=== PATIENT | female | born 1945 | race Caucasian/White ===

== ENCOUNTER 2017-05-06 13:55 | Observation (INO) | payer MEDICARE ==
[~2017-05-06] VITALS: Ht 170.2 cm; Wt 77.0 kg
[~2017-05-06 13:55] MED LIST: AMLO5TAB22 PO; ASPI325T PO; BIOT10004 PO; CYCL-36 PO; DEXI30CA2 PO; ESTR0.059; NORV5TAB PO; RANI150 PO; TRAM50TA PO
[2017-05-06 13:57] VITALS: BP 142/84; PULSE 107; RESP 18; TEMP 97.9; O2SAT 98
[2017-05-06 14:41] VITALS: BP 146/75; PULSE 89; RESP 19; TEMP 97.7; O2SAT 100
[2017-05-06] MEDS ORDERED: SODIUM CHLORIDE 0.9% FLUSH 10 ML FLUSH IVF PRN (14:45)
[2017-05-06] MEDS ORDERED: ASPIRIN 325 MG TAB PO ONE (14:45)
[2017-05-06] MEDS ORDERED: NITROGLYCERIN 0.4 MG SL 25 TABS/BTL SL ONE (14:45)
[2017-05-06 14:46] VITALS: BP_SYST 142; BP_SYST 146; BP_DIAS 72; BP_DIAS 75
[2017-05-06] MEDS ORDERED: ASPI81CH CHEW (14:49)
[2017-05-06] MEDS ORDERED: AMLO5TAB2 PO (14:49)
[2017-05-06] MEDS ORDERED: OMEP20TA PO (14:49)
[2017-05-06] MEDS ORDERED: CARV6.252 PO (14:49)
--- NOTE | 2017-05-06 14:54 | PD ---
HPI Chief Complaint: Chest Pain Time Seen by Provider: 14:49 Travel History International Travel<30 days: No Contact w/Intl Traveler<30days: No Traveled to known affect area: No History of Present Illness HPI 71-year-old female that presents to the ED for evaluation of chest pain. Per patient she's had this past couple days but became more severe today. Per patient he feels like a pressure. Radiates to the back. Per patient she had similar episode on 2014 which she had a stent on her heart. Per patient feels very similar. Per patient she took 2 aspirins today. Per patient she's not been feeling well for a couple of weeks. Per patient she was seen [address] Holden and had a stress test that was negative. Per patient she actually has an appointment with Dr. Orlando as she will like a second opinion on Friday but she states that because the pain and the symptoms came the past couple days she cannot wait so she came here to get it checked. She has not taken any nitroglycerin. Per patient her pain is pressure-like and is 8 out of 10. Per patient now is somewhat improve her per patient he comes and goes and is not usually constant. Per patient he started yesterday with back pain. She has had her gallbladder removed. She states that she felt nauseous yesterday and today. No vomiting. Loose stool today. No history of aneurysms. PFSH Past Medical History Cardiac Catheterization: Yes (not sure where done about 6-8 yrs ago no stents) Cardiovascular Problems: Yes (CAD, HTN ) High Cholesterol: Yes Coronary Artery Disease: Yes Diabetes: No GERD: Yes Hypertension: Yes Tetanus Vaccination: Unknown ?: Not Past Surgical History Appendectomy: Yes Hysterectomy: Yes Social History Alcohol Use: Yes (OCC WINE) Tobacco Use: No Substance Use: No Allergies-Medications (Allergen,Severity, Reaction): Coded Allergies: No Known Allergies (Verified , 05/06/17) Reported Meds & Prescriptions Reported Meds & Active Scripts Active Reported Omeprazole 20 Mg Tab 20 Mg PO DAILY Aspirin 81 Mg Chew 81 Mg CHEW ONCE Carvedilol 6.25 Mg Tab 6.25 Mg PO BID Amlodipine (Amlodipine Besylate) 5 Mg Tab 5 Mg PO DAILY Review of Systems Except as stated in HPI: all other systems reviewed are Neg Physical Exam Narrative GENERAL: SKIN: Warm and dry. HEAD: Atraumatic. Normocephalic. EYES: Pupils equal and round. No scleral icterus. No injection or drainage. ENT: No nasal bleeding or discharge. Mucous membranes pink and moist. Tongue is midline. No uvula deviation. NECK: Trachea midline. No JVD. CARDIOVASCULAR: Regular rate and rhythm. No murmurs, S3, S4. Chest pain is not reproducible with touch. RESPIRATORY: No accessory muscle use. Clear to auscultation. Breath sounds equal bilaterally. GASTROINTESTINAL: Abdomen soft, non-tender, nondistended. Hepatic and splenic margins not palpable. MUSCULOSKELETAL: Extremities without clubbing, cyanosis, or edema. No obvious deformities. Full range of motion of the upper and lower extremities bilaterally. 2+ pulses bilaterally. NEUROLOGICAL: Awake and alert. No obvious cranial nerve deficits. Motor grossly within normal limits. Five out of 5 muscle strength in the arms and legs. Normal speech. PSYCHIATRIC: Appropriate mood and affect; insight and judgment normal. Data Data Last Documented VS Vital Signs Date Time Temp Pulse Resp B/P Pulse Ox O2 Delivery O2 Flow Rate FiO2 05/06/17 14:46 146/75 142/72 05/06/17 14:41 100 Room Air 05/06/17 14:41 97.7 89 19 Orders Electrocardiogram (05/06/17 ) Ckmb (Isoenzyme) Profile (05/06/17 14:37) Complete Blood Count With Diff (05/06/17 14:37) Comprehensive Metabolic Panel (05/06/17 14:37) Magnesium (Mg) (05/06/17 14:37) Prothrombin Time / Inr (Pt) (05/06/17 14:37) Act Partial Throm Time (Ptt) (05/06/17 14:37) Troponin I (05/06/17 14:37) Lipase (05/06/17 14:37) Chest, Single Ap (05/06/17 14:37) Ecg Monitoring (05/06/17 14:37) Bilateral Bp Monitoring (05/06/17 14:37) Iv Access Insert/Monitor (05/06/17 14:37) Oximetry (05/06/17 14:37) Oxygen Administration (05/06/17 14:37) Aspirin (Aspirin) (05/06/17 14:45) Sodium Chloride 0.9% Flush (Ns Flush) (05/06/17 14:45) Nitroglycerin Sl (Nitrostat Sl) (05/06/17 14:45) Activity Bed Rest With Brp (05/06/17 16:55) Vital Signs (Adult) Q4H (05/06/17 16:55) Cardiac Rhythm .As Directed (05/06/17 16:55) Notify Dr: Other .PRN (05/06/17 16:55) Notify Dr. Parameters (05/06/17 16:55) Resp Oxygen Nasal Cannula (05/06/17 ) Ckmb (Isoenzyme) Profile (05/06/17 17:45) Ckmb (Isoenzyme) Profile (05/06/17 20:45) Troponin I (05/06/17 17:45) Troponin I (05/06/17 20:45) Electrocardiogram (05/06/17 17:45) Electrocardiogram (05/06/17 20:45) ^ Obtain (05/06/17 16:55) Sodium Chloride 0.9% Flush (Ns Flush) (05/06/17 17:00) Sodium Chloride 0.9% Flush (Ns Flush) (05/06/17 21:00) Acetaminophen (Tylenol) (05/06/17 17:00) Acetamin-Hydrocod 325-7.5 Mg ([place] 7.5 (05/06/17 17:00) Ondansetron Inj (Zofran Inj) (05/06/17 17:00) Project Eng / Telemetry JESSENIA.Q8H (05/06/17 16:55) Admit Order (Ed Use Only) (05/06/17 16:55) Labs Laboratory Tests Test 05/06/17 14:45 White Blood Count 8.3 TH/MM3 Red Blood Count 5.29 MIL/MM3 Hemoglobin 15.3 GM/DL Hematocrit 44.9 % Mean Corpuscular Volume 85.0 FL Mean Corpuscular Hemoglobin 29.0 PG Mean Corpuscular Hemoglobin 34.1 % Concent Red Cell Distribution Width 15.2 % Platelet Count 301 TH/MM3 Mean Platelet Volume 7.2 FL Neutrophils (%) (Auto) 64.7 % Lymphocytes (%) (Auto) 25.0 % Monocytes (%) (Auto) 7.8 % Eosinophils (%) (Auto) 1.8 % Basophils (%) (Auto) 0.7 % Neutrophils # (Auto) 5.4 TH/MM3 Lymphocytes # (Auto) 2.1 TH/MM3 Monocytes # (Auto) 0.6 TH/MM3 Eosinophils # (Auto) 0.1 TH/MM3 Basophils # (Auto) 0.1 TH/MM3 CBC Comment DIFF FINAL Differential Comment Prothrombin Time 10.3 SEC Prothromb Time International 0.9 RATIO Ratio Activated Partial 29.1 SEC Thromboplast Time Sodium Level 141 MEQ/L Potassium Level 4.0 MEQ/L Chloride Level 106 MEQ/L Carbon Dioxide Level 26.4 MEQ/L Anion Gap 9 MEQ/L Blood Urea Nitrogen 17 MG/DL Creatinine 0.72 MG/DL Estimat Glomerular Filtration 80 ML/MIN Rate Random Glucose 101 MG/DL Calcium Level 9.6 MG/DL Magnesium Level 2.2 MG/DL Total Bilirubin 0.7 MG/DL Aspartate Amino Transf 21 U/L (AST/SGOT) Alanine Aminotransferase 23 U/L (ALT/SGPT) Alkaline Phosphatase 119 U/L Total Creatine Kinase 88 U/L Troponin I LESS THAN 0.02 NG/ML Total Protein 7.8 GM/DL Albumin 4.0 GM/DL Lipase 167 U/L [facility] Medical Decision Making Medical Screen Exam Complete: Yes Emergency Medical Condition: Yes Medical Record Reviewed: Yes Interpretation(s) CBC & BMP Diagram 05/06/17 14:45 LFTS and lipase WNL troponin and CKMB negative EKG shows sinus rhythm with no sign of acute ischemia or arrhythmia read by me and attending. Last Impressions Chest X-Ray 05/06/17 1437 Signed Impressions: Service Date/Time: Saturday, May 06, 2017 15:28 - CONCLUSION: 1. No acute cardiopulmonary disease radiographically. Allan Medeiros MD Differential Diagnosis Chest pain versus ACS versus GERD versus a typical chest pain versus NSTEMI Narrative Course 71-year-old female that presents to the ED for evaluation of chest pain. Patient was properly examined and was found to have signs and symptoms of unclear etiology. Definite concern for ACS. Labs and imaging ordered. Patient was given nitroglycerin and aspirin. Labs and imaging showed no sign of acute disease. My attending Dr. Taylor evaluated the patient with me. He recommends admission to the chest pain center. Patient agrees with this plan. Patient was admitted to the chest pain center. Procedures EKG Prior to Arrival: No Diagnosis Primary Impression: Chest pain Qualified Code: R07.9 - Chest pain, unspecified type Admitting Information Admitting Physician Requests: Observation Alex Riley May 06, 2017 14:54
[2017-05-06 15:13] LABS: APTT (PATIENT) 29.1 SEC (24.3-30.1); INTERNATIONAL NORMALIZED RATIO 0.9 RATIO; PROTHROMBIN TIME - PATIENT 10.3 SEC (9.8-11.6)
[2017-05-06 15:17] LABS: AUTOMATED NEUTROPHIL # 5.4 TH/MM3 (1.8-7.7); BASOPHIL # 0.1 TH/MM3 (0-0.2); BASOPHIL % 0.7 % (0.0-2.0); EOSINOPHIL # 0.1 TH/MM3 (0-0.4); EOSINOPHIL % 1.8 % (0.0-4.0); HEMATOCRIT 44.9 % (35.0-46.0); HEMO FLAGS DIFF FINAL; LYMPHOCYTE # 2.1 TH/MM3 (1.0-4.8); MEAN CORPUSCULAR HGB CONC 34.1 % (32.0-36.0); MONO % 7.8 % (0.0-8.0); NEUT % 64.7 % (16.0-70.0); PLATELET COUNT 301 TH/MM3 (150-450); RED BLOOD COUNT 5.29 MIL/MM3 (4.00-5.30); RED CELL DISTRIBUTION WIDTH 15.2 % (11.6-17.2); WHITE BLOOD COUNT 8.3 TH/MM3 (4.0-11.0)
[2017-05-06 15:34] LABS: ALT (GPT) 23 U/L (10-53); ANION GAP 9 MEQ/L (5-15); AST (GOT) 21 U/L (15-37); BICARBONATE 26.4 MEQ/L (21.0-32.0); BLOOD UREA NITROGEN 17 MG/DL (7-18); CHLORIDE 106 MEQ/L (98-107); GLOMERULAR FILTRATION RATE 80 ML/MIN (>89); MAGNESIUM 2.2 MG/DL (1.5-2.5); SODIUM (NA) 141 MEQ/L (136-145)
[2017-05-06 15:38] LABS: ALKALINE PHOSPHATASE 119 U/L (45-117); TOTAL BILIRUBIN ADULT 0.7 MG/DL (0.2-1.0)
[2017-05-06 15:39] LABS: CREATINE KINASE 88 U/L (26-192)
--- NOTE | 2017-05-06 15:56 | RADRPT ---
EXAM DATE/TIME: 05/06/2017 15:28 [facility] COMPARISON: CHEST SINGLE AP, April 11, 2015, 20:43. INDICATIONS : Chest pain. MEDICAL HISTORY : None. SURGICAL HISTORY : None. ENCOUNTER: Initial ACUITY: 1 day PAIN SCORE: 0/10 LOCATION: Bilateral chest FINDINGS: A single view of the chest demonstrates the lungs to be symmetrically aerated without evidence of mas s, infiltrate or effusion. The cardiomediastinal contours are unremarkable. Plate and screw fixatio n in the lower cervical spine. Osseous structures are intact. CONCLUSION: 1. No acute cardiopulmonary disease radiographically. Allan Medeiros MD on May 06, 2017 at 15:53 Board Certified Radiologist. This report was verified electronically.
--- NOTE | 2017-05-06 16:46 | EKG ---
Date Performed: 05/06/2017 Time Performed: 14:28:00 PTAGE: 71 years EKG: Sinus rhythm NORMAL ECG PREVIOUS TRACING : 04/12/2015 03.31 No significant change from previous tracing noted. DOCTOR: Rachid Ronquillo Interpretating Date/Time 05/06/2017 16:44:10
[2017-05-06 17:00] VITALS: O2SAT 99
[2017-05-06] MEDS ORDERED: ONDANSETRON HCL 4 MG/2 ML VIAL IV PRN (17:00)
[2017-05-06] MEDS ORDERED: ACETAMINOPHEN 500 MG CPLT PO PRN (17:00)
[2017-05-06] MEDS ORDERED: ACETAMINOPHEN/HYDROcodone 325 MG/7.5 MG TAB PO PRN (17:00)
[2017-05-06] MEDS ORDERED: SODIUM CHLORIDE 0.9% FLUSH 10 ML FLUSH IV FLUSH PRN (17:00)
[2017-05-06 17:16] VITALS: BP 159/76; PULSE 84; RESP 18; O2SAT 99
--- NOTE | 2017-05-06 17:28 | PD ---
Data Data Last Documented VS Vital Signs Date Time Temp Pulse Resp B/P Pulse Ox O2 Delivery O2 Flow Rate FiO2 05/06/17 14:46 146/75 142/72 05/06/17 14:41 100 Room Air 05/06/17 14:41 97.7 89 19 Orders Electrocardiogram (05/06/17 ) Ckmb (Isoenzyme) Profile (05/06/17 14:37) Complete Blood Count With Diff (05/06/17 14:37) Comprehensive Metabolic Panel (05/06/17 14:37) Magnesium (Mg) (05/06/17 14:37) Prothrombin Time / Inr (Pt) (05/06/17 14:37) Act Partial Throm Time (Ptt) (05/06/17 14:37) Troponin I (05/06/17 14:37) Lipase (05/06/17 14:37) Chest, Single Ap (05/06/17 14:37) Ecg Monitoring (05/06/17 14:37) Bilateral Bp Monitoring (05/06/17 14:37) Iv Access Insert/Monitor (05/06/17 14:37) Oximetry (05/06/17 14:37) Oxygen Administration (05/06/17 14:37) Aspirin (Aspirin) (05/06/17 14:45) Sodium Chloride 0.9% Flush (Ns Flush) (05/06/17 14:45) Nitroglycerin Sl (Nitrostat Sl) (05/06/17 14:45) Activity Bed Rest With Brp (05/06/17 16:55) Vital Signs (Adult) Q4H (05/06/17 16:55) Cardiac Rhythm .As Directed (05/06/17 16:55) Notify Dr: Other .PRN (05/06/17 16:55) Notify Dr. Parameters (05/06/17 16:55) Resp Oxygen Nasal Cannula (05/06/17 ) Ckmb (Isoenzyme) Profile (05/06/17 17:45) Ckmb (Isoenzyme) Profile (05/06/17 20:45) Troponin I (05/06/17 17:45) Troponin I (05/06/17 20:45) Electrocardiogram (05/06/17 17:45) Electrocardiogram (05/06/17 20:45) ^ Obtain (05/06/17 16:55) Sodium Chloride 0.9% Flush (Ns Flush) (05/06/17 17:00) Sodium Chloride 0.9% Flush (Ns Flush) (05/06/17 21:00) Acetaminophen (Tylenol) (05/06/17 17:00) Acetamin-Hydrocod 325-7.5 Mg ([place] 7.5 (05/06/17 17:00) Ondansetron Inj (Zofran Inj) (05/06/17 17:00) Stone Banker / Telemetry JESSENIA.Q8H (05/06/17 16:55) Admit Order (Ed Use Only) (05/06/17 16:55) Labs Laboratory Tests Test 05/06/17 14:45 White Blood Count 8.3 TH/MM3 Red Blood Count 5.29 MIL/MM3 Hemoglobin 15.3 GM/DL Hematocrit 44.9 % Mean Corpuscular Volume 85.0 FL Mean Corpuscular Hemoglobin 29.0 PG Mean Corpuscular Hemoglobin 34.1 % Concent Red Cell Distribution Width 15.2 % Platelet Count 301 TH/MM3 Mean Platelet Volume 7.2 FL Neutrophils (%) (Auto) 64.7 % Lymphocytes (%) (Auto) 25.0 % Monocytes (%) (Auto) 7.8 % Eosinophils (%) (Auto) 1.8 % Basophils (%) (Auto) 0.7 % Neutrophils # (Auto) 5.4 TH/MM3 Lymphocytes # (Auto) 2.1 TH/MM3 Monocytes # (Auto) 0.6 TH/MM3 Eosinophils # (Auto) 0.1 TH/MM3 Basophils # (Auto) 0.1 TH/MM3 CBC Comment DIFF FINAL Differential Comment Prothrombin Time 10.3 SEC Prothromb Time International 0.9 RATIO Ratio Activated Partial 29.1 SEC Thromboplast Time Sodium Level 141 MEQ/L Potassium Level 4.0 MEQ/L Chloride Level 106 MEQ/L Carbon Dioxide Level 26.4 MEQ/L Anion Gap 9 MEQ/L Blood Urea Nitrogen 17 MG/DL Creatinine 0.72 MG/DL Estimat Glomerular Filtration 80 ML/MIN Rate Random Glucose 101 MG/DL Calcium Level 9.6 MG/DL Magnesium Level 2.2 MG/DL Total Bilirubin 0.7 MG/DL Aspartate Amino Transf 21 U/L (AST/SGOT) Alanine Aminotransferase 23 U/L (ALT/SGPT) Alkaline Phosphatase 119 U/L Total Creatine Kinase 88 U/L Troponin I LESS THAN 0.02 NG/ML Total Protein 7.8 GM/DL Albumin 4.0 GM/DL Lipase 167 U/L [facility] Supervised Visit with CYRIL: Yes Narrative Course The history, exam, and medical decision-making in the associated mid-level provider note were completed with my assistance. I reviewed and agree with the findings presented. I attest that I had a [id number] encounter with the patient on the same day, and personally performed and documented my assessment and findings in the medical record. *My assessment and Findings: 71-year-old woman presents emergent department pressure-like chest discomfort rating her back. She is a history of CAD. She was following with Dr. Holden , but is given a follow-up with but has left his practice and is intending to follow-up with Dr. Orlando. She states that she has a stent placed before , that had 90% blockage despite a normal stress previously. I think because of that she's having recurrent episodes of abdominal chest pain. He apparently did balloon her stent open a second time on this catheter done shortly after its initial placement a couple years ago, but has reportedly had cast since then to the been clean. She reports a stress test about [address] Holden's office. She states the chest pain feels like when she had her angina that led to her stent previously. It's hard to decide what to make of this patient. Her EKG is unremarkable. I think because of her complaints of chest pain that feels like her previous angina and her history of having had a negative stress with 90% blockage she is gotten multiple cast since then. Heart catheterization since then. She is now not following with any child nutrition director that she has left Dr. Holden's practice, but has not followed up with Dr. Orlando yet. We did speak with Dr. Holden. We'll plan on admitting of the chest pain Center for serial cardiac enzymes, and further testing at the discretion of cardiology. Diagnosis Primary Impression: Chest pain Qualified Code: R07.9 - Chest pain, unspecified type Anupam Taylor MD May 06, 2017 17:28
[2017-05-06] MEDS ORDERED: NITROGLYCERIN 0.4 MG SL 25 TABS/BTL SL PRN (17:30)
[2017-05-06 19:30] VITALS: O2SAT 95
[2017-05-06 19:32] LABS: CREATINE KINASE 78 U/L (26-192)
[2017-05-06] MEDS: CARVEDILOL 6.25 MG TAB PO SCH (20:42)
[2017-05-06] MEDS: SODIUM CHLORIDE 0.9% FLUSH 10 ML FLUSH IV FLUSH SCH (20:42)
[2017-05-06 22:09] LABS: CREATINE KINASE 79 U/L (26-192)
[2017-05-07 00:30] VITALS: BP 148/74; PULSE 78; RESP 18; TEMP 98.4; O2SAT 98
[2017-05-07 03:25] VITALS: PULSE 68
[2017-05-07 05:21] VITALS: BP 120/57; PULSE 77; RESP 18; TEMP 98; O2SAT 97
--- NOTE | 2017-05-07 06:49 | EKG ---
Date Performed: 05/06/2017 Time Performed: 18:25:20 PTAGE: 71 years EKG: Sinus rhythm NORMAL ECG PREVIOUS TRACING : 05/06/2017 14.28 No significant change from previous tracing noted. DOCTOR: Rachid Ronquillo Interpretating Date/Time 05/07/2017 06:46:39
[2017-05-07 08:00] VITALS: BP 129/65; PULSE 79; RESP 16; TEMP 97.7; O2SAT 93; O2SAT 96
[2017-05-07] MEDS ORDERED: PANTOPRAZOLE SOD 20 MG DELAYED RELEASE TAB PO SCH (09:00)
[2017-05-07] MEDS ORDERED: amLODIPine BESYLATE 5 MG TAB PO SCH (09:00)
[2017-05-07] MEDS ORDERED: ASPIRIN 325 MG TAB PO SCH (09:00)
[2017-05-07] MEDS ORDERED: REGADENOSON INJ 0.4 MG/5 ML SYR ONE (10:00)
--- NOTE | 2017-05-07 11:31 | RADRPT ---
EXAM DATE/TIME: 05/07/2017 09:12 [facility] COMPARISON: No previous studies available for comparison. INDICATIONS : Left sided chest pain radiating to back. Angina. Coronary artery disease. DOSE: 27.2 mCi Tc99m Myoview at stress. 8.4 mCi Tc99m Myoview at rest. 0.4 mg Lexiscan STRESS SYMPTOMS: Dyspnea and heart racing. EJECTION FRACTION: > 70% MEDICAL HISTORY : Hypertension. Gastroesophageal reflux disease. Diabetes mellitus type 2. SURGICAL HISTORY : Appendectomy. Hysterectomy. Cholecystectomy. ENCOUNTER: Initial ACUITY: 3 weeks PAIN SCALE: 8/10 LOCATION: Left chest TECHNIQUE: The patient underwent pharmacologic stress with infusion of prescribed dose. Continuous ECG tracing was monitored during stress. Gated SPECT imaging was performed after stress and conventional SPECT i maging was performed at rest. The examination was performed on a SPECT/CT scanner, both attenuation and non-corrected datasets were reviewed. FINDINGS: DISTRIBUTION: The maximum perfused segment at stress is in the inferior wall. PERFUSION STUDY: The pattern of perfusion at stress is within normal limits. GATED STUDY: There is intact wall motion and thickening without hypokinetic or dyskinetic segments. CONCLUSION: 1. No evidence for reversible ischemia. 2. Intact wall motion with EF of greater than 70%. RISK CATEGORY: Low (<1% annual mortality rate) Allan Medeiros MD on May 07, 2017 at 11:19 Board Certified Radiologist. This report was verified electronically.
[2017-05-07 12:00] VITALS: BP 133/73; PULSE 82; RESP 16; TEMP 97.3; O2SAT 93
[2017-05-07] MEDS: SODIUM CHLORIDE 0.9% FLUSH 10 ML FLUSH IV FLUSH SCH (12:14)
[2017-05-07] MEDS: CARVEDILOL 6.25 MG TAB PO SCH (12:14)
--- NOTE | 2017-05-07 12:14 | HHI.DCPOC ---
Discharge Care Plan Diagnosis: (1) Atypical chest pain (2) Hx of coronary artery disease Goals to Promote Your Health * To prevent worsening of your condition and complications * To maintain your health at the optimal level Directions to Meet Your Goals Take your medications as prescribed Follow your dietary instruction Follow activity as directed Keep your appointments as scheduled Take your immunizations and boosters as scheduled If your symptoms worsen call your PCP, if no PCP go to Urgent Care Center or Emergency Room Smoking is Dangerous to Your Health. Avoid second hand smoke Call the 24-hour hour crisis hotline for domestic abuse at [place] May 07, 2017 12:14
--- NOTE | 2017-05-07 13:54 | EKG ---
Date Performed: 05/07/2017 Time Performed: 05:00:45 PTAGE: 71 years EKG: Sinus rhythm NORMAL ECG PREVIOUS TRACING : 05/06/2017 18.25 Since previous tracing, no significant change noted DOCTOR: Hayden Vasquez Interpretating Date/Time 05/07/2017 13:53:49
--- NOTE | 2017-05-07 14:18 | TR ---
Date Performed: 05/07/2017 Time Performed: 09:52:51 DOCTOR: Hayden Vasquez DRUG LIST: CLINICAL HISTORY: CHEST PAIN REASON FOR TEST: CHEST PAIN REASON FOR ENDING: OBSERVATION: CONCLUSION: Lexiscan stress test was performed under standard four minute protocol. Radionuclid e was injected one minute prior to ending the test. No electrocardiographic abormalities were present to suggest ischemia. Nuclear imaging and interpretation are pending. COMMENTS:
--- NOTE | 2017-05-07 15:14 | HHI.HP ---
HPI Primary Care Physician Yina Hein MD Chief Complaint Chest pain History of Present Illness 71-year-old female pertinent medical history including coronary artery disease, times one cardiac stent, hypertension, hyperlipidemia presents to emergency room for further evaluation of chest pain. Onset 2 weeks ago. Location substernal pressure accompanying with bilateral shoulder burning radiates across her back. Associated symptoms including shortness of breath and nausea. Denies any diaphoresis. No known precipitating factors does does not report symptoms to be exertional. Duration varies. No known relieving factors. Endorses she has had a recent cardiac catheterization 6 months ago performed by Dr. Holden and also chemical stress test 3 months ago. Both exams reported to be unremarkable. Since first cardiac stent placed in July 2016 reports 2 catheterizations completed due to intermittent chest pain. She has an appointment Friday05/09/[address] Orlando for a second opinion. Review of Systems General: No fatigue,weakness, fever, chills, recent travel, or recent illness. Has been in her general state of health. HEENT: No ROSSI, no vision changes, no nasal congestion or drainage CV: As stated above. Denies any current chest pain or pressure. Is not currently on statin therapy stating due to muscle aches. RESP: No SOB, cough, wheeze, or recent URI. GI: No nausea, vomiting, bowel changes, diarrhea, constipation, pain, distention , melena, blood in the stool. No change in appetite, no unintentional weight gain or weight loss. : No dysuria, urgency, frequency. EXT: No lower leg edema, no paraesthesias MS: No discomfort or change in ROM, chronic neck and upper back pain. NEURO: No dizziness, difficulty with balance, LOC, motor/sensory deficits PSYCH: No anxiety, depression, suicidal ideation SKIN: No rashes, no concerning lesions Past Family Social History Allergies: Coded Allergies: No Known Allergies (Verified , 05/06/17) Past Medical History Hypertension, hyperlipidemia, CAD, times one cardiac stent LAD, chronic neck pain, GERD, DDD Past Surgical History Cholecystectomy, appendectomy, hysterectomy, cervical fusion C5-C6 Reported Medications Active Reported Omeprazole 20 Mg Tab 20 Mg PO DAILY Aspirin 81 Mg Chew 81 Mg CHEW ONCE Carvedilol 6.25 Mg Tab 6.25 Mg PO BID Amlodipine (Amlodipine Besylate) 5 Mg Tab 5 Mg PO DAILY Social History Personal CAD, known hypertension and hyperlipidemia. No known diabetes. Lifelong nonsmoker. Denies any alcohol or illegal drug use. 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 Endorses a sedentary lifestyle otherwise. Past cardiac testing Reports 2 Cardiac catheterization sent first cardiac stent placement with most recent 6 months ago. No intervention required inhaler catheterization. July 2016cardiac catheterization times one cardiac stent to LAD this is performed [facility] Yelena scan completed 3 months ago unremarkable this was completed Dr. Holden' s office. Patient's veterinary receptionist Dr. Holden although endorses she has an appointment with Dr. Orlando this Friday for a second opinion. Physical Exam Vital Signs Vital Signs Date Time Temp Pulse Resp B/P Pulse Ox O2 Delivery O2 Flow Rate FiO2 05/07/17 12:00 97.3 82 16 133/73 93 05/07/17 08:00 96 05/07/17 08:00 97.7 79 16 129/65 93 05/07/17 05:21 98.0 77 18 120/57 97 05/07/17 03:25 68 05/07/17 00:30 98.4 78 18 148/74 98 05/06/17 19:30 95 05/06/17 17:16 84 18 159/76 99 Room Air 05/06/17 17:00 99 21 Physical Exam GENERAL: Alert WN, WD, NAD, pleasant, female HEAD: NC, AT EYES: Sclera clear, conjunctiva without injection, pupils equal and round ENT: Mucous membranes pink and moist NECK: Supple, no masses, trachea midline CV: RRR, without murmur, rub, gallop, no JVD, S1-S2 no S3-S4. RESP: Clear lungs throughout bilateral, no crackles, wheeze, rhonchi, symmetrical chest rise, nonlabored, able to speak in full sentences ABD: Soft, NT, ND, no masses, positive bowel tones EXT: Pulses +24, no dependent edema MS: Normal tone 4 extremities, nontender, no obvious deformities, full range of motion NEURO: CN II through CN XII grossly intact, motor strength 5/5, gait WNL PSYCH: A+O 3, pleasant affect, appropriate speech, appropriate mood and affect , insight and judgment SKIN: Normal turgor, normal texture, no lesions, no rashes, brisk cap refill, even hair distribution Laboratory Laboratory Tests Test 05/06/17 05/06/17 18:15 20:45 Total Creatine Kinase 78 79 Troponin I LESS THAN 0.02 LESS THAN 0.02 Result Diagram: 05/06/17 1445 05/06/17 1445 Imaging Last Impressions Myocardial Perfusion Scan Nuc Med 05/07/17 0000 Signed Impressions: Service Date/Time: Sunday, May 07, 2017 09:12 - CONCLUSION: 1. No evidence for reversible ischemia. 2. Intact wall motion with EF of greater than 70%%. RISK CATEGORY: Low (<1%% annual mortality rate) Allan Medeiros MD Chest X-Ray 05/06/17 1437 Signed Impressions: Service Date/Time: Saturday, May 06, 2017 15:28 - CONCLUSION: 1. No acute cardiopulmonary disease radiographically. Allan Medeiros MD Course EKGs Normal sinus rhythm, normal axis, no ST or T-segment changes Assessment and Plan Assessment and Plan #1 Chest painadmitted to chest pain center. Ruled out with 3 sets of EKGs, cardiac, and monitored overnight. Seen and evaluated by Dr. Hayden Vasquez. Will complete a chemical stress test as patient states she is unable to walk on treadmill. After test completed will call Dr. Holden for further recommendations. Discussed in length if she would Dr. Holden to be notified and she agrees. #2 Hypertensioncontinue amlodipine #3 Coronary artery diseasecontinue carvedilol and aspirin. Discussed in length importance of statin therapy and to discuss with Dr. Orlando. #4 GERDcontinue omeprazole Yelena scan no evidence of reversible ischemia. Intact wall motion with EF greater than 70%. Dr. Holden made aware patient arrival to chest pain center , ruled out with serial EKGs and cardiac enzymes, complete an chemical stress test is unremarkable. Nelida agrees to assess patient but would first like the patient to be asked which veterinary receptionist prefers. After further discussion with patient she would like to proceed with her original plan to get a second opinion , therefore she would like to be discharged and follow-up with Dr. Orlando this Friday. Second call placed to Dr. Holden and he has been aware patient' s decision. So [place] May 07, 2017 15:14
== END 2017-05-07 12:42 | disposition home or self-care (01) ==
LOC: NEPC 13:55 → NEDA 16:59 → NEPGCP 18:33
PROVIDERS: ADMIT Internal Medicine Interventional Cardiology; ATTEND Internal Medicine Interventional Cardiology
DX: R07.89 Other chest pain (principal); R06.02 Shortness of breath; I25.10 Atherosclerotic heart disease of native coronary artery without angina pectoris; I10 Essential (primary) hypertension; E78.5 Hyperlipidemia, unspecified; K21.9 Gastro-esophageal reflux disease without esophagitis; E78.00 Pure hypercholesterolemia, unspecified; Z79.82 Long term (current) use of aspirin; Z95.5 Presence of coronary angioplasty implant and graft; Z98.1 Arthrodesis status
CPT/HCPCS: 71010; 78452; 80053; 82550; 83690; 83735; 84484; 85025; 85610; 85730; 93005; 93017; 99285; A9502; G0378; J2785